=== PATIENT | male | born 1990 | race African-American/Black ===

== ENCOUNTER 2016-09-20 02:25 | Emergency (ER) | payer OTHER ==
[~2016-09-20] VITALS: Ht 170.2 cm; Wt 68.0 kg
[~2016-09-20 02:25] MED LIST: FLEXERIL PO; MEDROLDOSEPACK PO; NYQUIL D COLD295 ML PO; TYLENOL PM EX-1 EACH PO
[2016-09-20] MEDS ORDERED: HYDROCODONE-AP1 EAC6 PO (02:33)
[2016-09-20] MEDS ORDERED: PERIDEX15 ML MM (04:06)
[2016-09-20] MEDS ORDERED: NORCO 5-325 TA1 EACH PO (04:06)
[2016-09-20] MEDS ORDERED: PENICILLIN VK500 M1 PO (04:06)
[2016-09-20 04:16] VITALS: BP 105/59
== END 2016-09-20 04:17 | disposition home or self-care (01) ==
LOC: ER 02:25
DX: K08.89 Other specified disorders of teeth and supporting structures (principal); F17.210 Nicotine dependence, cigarettes, uncomplicated

== ENCOUNTER 2020-10-15 18:48 | Emergency (ER) | payer OTHER ==
[~2020-10-15] VITALS: Ht 170.2 cm; Wt 68.0 kg
[~2020-10-15 18:48] MED LIST changes: +BLEPH-105 ML OPHTHALMIC; +HYDROCODONE-AP1 EAC6 PO; +NORCO 5-325 TA1 EACH PO; +PENICILLIN VK500 M1 PO; +PERIDEX15 ML MM
[2020-10-15 19:03] VITALS: BP 123/75
== END 2020-10-15 20:52 | disposition left against medical advice (07) ==
LOC: ER 18:48
DX: R42 Dizziness and giddiness (principal); Z53.21 Procedure and treatment not carried out due to patient leaving prior to being seen by health care provider

== ENCOUNTER 2020-10-19 16:53 | Emergency (ER) | payer OTHER ==
[~2020-10-19] VITALS: Ht 170.2 cm; Wt 68.0 kg
[2020-10-19 18:03] LABS: HEMATOCRIT 46.4 % (42.0-52.0); HEMOGLOBIN 15.5 gm/dL (14.0-18.0); MCH 29.9 pg (26.0-34.0); MCHC 33.4 g/dL (28.0-37.0); MCV 89.3 fL (80.0-100.0); PLATELET COUNT 92 thou/uL (150-400); RDW 14.4 % (10.5-14.5)
[2020-10-19 18:06] LABS: WBC 1.8 thou/uL (4.0-11.0)
[2020-10-19 18:25] LABS: CREATININE 1.3 mg/dL (0.7-1.3); POTASSIUM 3.8 mmol/L (3.5-5.1)
[2020-10-19 18:58] LABS: ABSOLUTE NEUTROPHILS 1.1 thou/uL (1.4-8.2); ATYPICAL LYMPHS 7 %
[2020-10-19] MEDS ORDERED: LIDOCAINE VISC100 ML PO (20:02)
[2020-10-19] MEDS ORDERED: BENADRYL A12.5 MG/5 PO (20:02)
[2020-10-19 20:20] VITALS: BP 107/54
== END 2020-10-19 20:20 | disposition home or self-care (01) ==
LOC: ER 16:53
PROVIDERS: Emergency Medicine
DX: J02.9 Acute pharyngitis, unspecified (principal); F17.210 Nicotine dependence, cigarettes, uncomplicated

== ENCOUNTER 2021-01-07 20:05 | Emergency (ER) | payer OTHER ==
[~2021-01-07] VITALS: Ht 170.2 cm; Wt 68.0 kg
[~2021-01-07 20:05] MED LIST changes: +BENADRYL A12.5 MG/5 PO; +LIDOCAINE VISC100 ML PO
[2021-01-07] MEDS ORDERED: RECTICARE30 GM TOP (21:20)
[2021-01-07] MEDS ORDERED: PROCTOCREAM-HC30 GM RECTAL (21:20)
[2021-01-07] MEDS ORDERED: MIRALAX119 GM PO (21:20)
[2021-01-07 21:45] VITALS: BP 123/68
== END 2021-01-07 21:47 | disposition home or self-care (01) ==
LOC: ER 20:05
DX: K64.4 Residual hemorrhoidal skin tags (principal); F17.210 Nicotine dependence, cigarettes, uncomplicated

== ENCOUNTER 2021-01-21 01:08 | Emergency (ER) | payer OTHER ==
[~2021-01-21] VITALS: Ht 170.2 cm; Wt 68.0 kg
[~2021-01-21 01:08] MED LIST changes: +MIRALAX119 GM PO; +PROCTOCREAM-HC30 GM RECTAL; +RECTICARE30 GM TOP
[2021-01-21] MEDS ORDERED: NOHOMEMEDICATIONS (01:14)
[2021-01-21 01:58] LABS: HEMATOCRIT 40.2 % (42.0-52.0); HEMOGLOBIN 13.9 gm/dL (14.0-18.0); MCH 30.2 pg (26.0-34.0); MCHC 34.6 g/dL (28.0-37.0); MCV 87.4 fL (80.0-100.0); PLATELET COUNT 196 thou/uL (150-400); RBC 4.61 mil/uL (4.50-6.00); RDW 15.5 % (10.5-14.5); WBC 6.2 thou/uL (4.0-11.0)
[2021-01-21 02:05] LABS: CALCIUM 8.4 mg/dL (8.5-10.1); CREATININE 1.1 mg/dL (0.7-1.3); POTASSIUM 4.1 mmol/L (3.5-5.1)
[2021-01-21 02:12] LABS: ALBUMIN 3.2 g/dL (3.4-5.0); TOTAL BILIRUBIN 0.4 mg/dL (0.2-1.0); TOTAL PROTEIN 7.3 g/dL (6.4-8.2)
[2021-01-21 02:35] LABS: ATYPICAL LYMPHS 5 %; LARGE PLATELETS OCCASIONAL
[2021-01-21 03:21] LABS: URINE BILIRUBIN NEGATIVE (Negative); URINE BLOOD NEGATIVE (Negative); URINE CLARITY CLEAR; URINE COLOR YELLOW; URINE GLUCOSE-RANDOM* NEGATIVE (Negative); URINE KETONES TRACE (Negative); URINE LEUKOCYTES-REFLEX NEGATIVE (Negative); URINE NITRITE-REFLEX NEGATIVE (Negative); URINE PROTEIN (DIPSTICK) NEGATIVE (Negative)
[2021-01-21 04:07] VITALS: BP 109/46
== END 2021-01-21 04:21 | disposition home or self-care (01) ==
LOC: ER 01:08
PROVIDERS: Emergency Medicine Emergency Medical Services
DX: B34.9 Viral infection, unspecified (principal); R42 Dizziness and giddiness; H57.89 Other specified disorders of eye and adnexa; F17.210 Nicotine dependence, cigarettes, uncomplicated

== ENCOUNTER 2021-02-04 23:18 | Emergency (ER) | payer BC ==
[~2021-02-04 23:18] MED LIST changes: +NOHOMEMEDICATIONS
[2021-02-05 00:50] VITALS: BP 116/71
== END 2021-02-05 00:50 | disposition home or self-care (01) ==
LOC: ER 23:18
DX: K59.00 Constipation, unspecified (principal); F17.210 Nicotine dependence, cigarettes, uncomplicated